=== PATIENT | male | born 1975 | race Caucasian/White ===

== ENCOUNTER 2019-11-19 06:55 | Observation (INO) | payer BC ==
[2019-11-19] MEDS ORDERED: ASPIRIN 81 MG PO STA (07:28)
[2019-11-19] MEDS ORDERED: NITROGLYCERIN OINT 1 INCH/GM PACKET TOPICAL STA (07:28)
--- NOTE | 2019-11-19 07:39 | ED ---
General Adult HPI - General Chief complaint: Chest Pain Stated complaint: Chest pain Time Seen by Provider: 11/19/19 07:00 Source: patient, EMS, RN notes reviewed, old records reviewed Mode of arrival: EMS Limitations: no limitations - History of Present Illness Initial comments: This is a 43-year-old male who presents emergency Department no significant past medical history. Patient states he does have strong family history for heart disease. Patient states his father in his 50s. Patient states last night he started having chest pressure which radiates straight to his back and he woke up this morning and the pressure continued. Patient denies any diaphoretic episodes patient denies any shortness of breath or difficulty breathing. Rowan ent denies any nausea. Patient denies any recent fever chills or cough per patient denies any abdominal pain patient denies any vomiting or diarrhea. She denies any similar symptoms in the past. Patient does describe it as a pressure on his chest. - Related Data Home Medications Medication Instructions Recorded Confirmed No Known Home Medications 08/04/15 08/04/15 Allergies Allergy/AdvReac Type Severity Reaction Status Date / Time No Known Allergies Allergy Verified 08/04/15 13:12 Review of Systems ROS Statement: Those systems with pertinent positive or pertinent negative responses have been documented in the HPI. ROS Other: All systems not noted in ROS Statement are negative. Past Medical History Past Medical History: No Reported History History of Any Multi-Drug Resistant Organisms: None Reported Past Surgical History: Orthopedic Surgery Additional Past Surgical History / Comment(s): FX ANKLE AND THUMB Past Anesthesia/Blood Transfusion Reactions: Motion Sickness Past Psychological History: No Psychological Hx Reported Smoking Status: Never smoker Past Alcohol Use History: None Reported Past Drug Use History: None Reported General Exam - General Exam Comments Initial Comments: GENERAL: Patient is well-developed and well-nourished. Patient is nontoxic and well- hydrated and is in no acute distress. ENT: Neck is soft and supple. No significant lymphadenopathy is noted. Oropharynx is clear. Moist mucous membranes. Neck has full range of motion without eliciting any pain. EYES: The sclera were anicteric and conjunctiva were pink and moist. Extraocular movements were intact and pupils were equal round and reactive to light. Eyelids were unremarkable. PULMONARY: Unlabored respirations. Good breath sounds bilaterally. No audible rales rhonchi or wheezing was noted. CARDIOVASCULAR: There is a regular rate and rhythm without any murmurs gallops or rubs. ABDOMEN: Soft and nontender with normal bowel sounds. SKIN: Skin is clear with no lesions or rashes and otherwise unremarkable. NEUROLOGIC: Patient is alert and oriented x3. Cranial nerves II through XII are grossly intact. Motor and sensory are also intact. Normal speech, volume and content. Symmetrical smile. MUSCULOSKELETAL: Normal extremities with adequate strength and full range of motion. No lower extremity swelling or edema. No calf tenderness. LYMPHATICS: No significant lymphadenopathy is noted PSYCHIATRIC: Normal psychiatric evaluation. Limitations: no limitations Course Vital Signs 11/19/19 11/19/19 07:04 08:08 Temperature 98.6 F Pulse Rate 63 54 L Respiratory 17 16 Rate Blood Pressure 126/89 119/75 O2 Sat by Pulse 99 100 Oximetry Medical Decision Making - Medical Decision Making EKG shows sinus bradycardia 56 bpm WI interval 164 QRS is 82 QT intervals 410 QTC is 395. EKG shows no ST segment elevation or depression. Patient stated that the Nitropaste seem to take away his discomfort. Chest x-ray showed no acute abnormality. - Lab Data Result diagrams: 11/19/19 07:04 11/19/19 07:04 Lab Results 11/19/19 11/19/19 11/19/19 Range/Units 07:04 07:04 07:04 WBC 6.4 (3.8-10.6) k/uL RBC 5.06 (4.30-5.90) m/uL Hgb 14.1 (13.0-17.5) gm/dL Hct 42.9 (39.0-53.0) % MCV 84.8 (80.0-100.0) fL MCH 27.8 (25.0-35.0) pg MCHC 32.8 (31.0-37.0) g/dL RDW 12.5 (11.5-15.5) % Plt Count 265 (150-450) k/uL Neutrophils % 58 % Lymphocytes % 27 % Monocytes % 7 % Eosinophils % 4 % Basophils % 1 % Neutrophils # 3.7 (1.3-7.7) k/uL Lymphocytes # 1.7 (1.0-4.8) k/uL Monocytes # 0.5 (0-1.0) k/uL Eosinophils # 0.2 (0-0.7) k/uL Basophils # 0.1 (0-0.2) k/uL PT 10.6 (9.0-12.0) sec INR 1.0 (<1.2) APTT 24.9 (22.0-30.0) sec Sodium 137 (137-145) mmol/L Potassium 4.2 (3.5-5.1) mmol/L Chloride 103 (98-107) mmol/L Carbon Dioxide 24 (22-30) mmol/L Anion Gap 10 mmol/L BUN 8 L (9-20) mg/dL Creatinine 0.79 (0.66-1.25) mg/dL Est GFR (CKD-EPI)AfAm >90 (>60 ml/min/1.73 sqM) Est GFR (CKD-EPI)NonAf >90 (>60 ml/min/1.73 sqM) Glucose 103 H (74-99) mg/dL Calcium 9.1 (8.4-10.2) mg/dL Magnesium 1.7 (1.6-2.3) mg/dL Total Bilirubin 0.5 (0.2-1.3) mg/dL AST 26 (17-59) U/L ALT 22 (4-49) U/L Alkaline Phosphatase 64 (38-126) U/L Troponin I (0.000-0.034) ng/mL Total Protein 6.7 (6.3-8.2) g/dL Albumin 4.1 (3.5-5.0) g/dL 11/19/19 Range/Units 07:04 WBC (3.8-10.6) k/uL RBC (4.30-5.90) m/uL Hgb (13.0-17.5) gm/dL Hct (39.0-53.0) % MCV (80.0-100.0) fL MCH (25.0-35.0) pg MCHC (31.0-37.0) g/dL RDW (11.5-15.5) % Plt Count (150-450) k/uL Neutrophils % % Lymphocytes % % Monocytes % % Eosinophils % % Basophils % % Neutrophils # (1.3-7.7) k/uL Lymphocytes # (1.0-4.8) k/uL Monocytes # (0-1.0) k/uL Eosinophils # (0-0.7) k/uL Basophils # (0-0.2) k/uL PT (9.0-12.0) sec INR (<1.2) APTT (22.0-30.0) sec Sodium (137-145) mmol/L Potassium (3.5-5.1) mmol/L Chloride (98-107) mmol/L Carbon Dioxide (22-30) mmol/L Anion Gap mmol/L BUN (9-20) mg/dL Creatinine (0.66-1.25) mg/dL Est GFR (CKD-EPI)AfAm (>60 ml/min/1.73 sqM) Est GFR (CKD-EPI)NonAf (>60 ml/min/1.73 sqM) Glucose (74-99) mg/dL Calcium (8.4-10.2) mg/dL Magnesium (1.6-2.3) mg/dL Total Bilirubin (0.2-1.3) mg/dL AST (17-59) U/L ALT (4-49) U/L Alkaline Phosphatase (38-126) U/L Troponin I <0.012 (0.000-0.034) ng/mL Total Protein (6.3-8.2) g/dL Albumin (3.5-5.0) g/dL Disposition Clinical Impression: Chest pain Disposition: ADMITTED IP TO THIS [facility] Referrals: None,Stated [Primary Care Provider] - 1-2 days Time of Disposition: 09:04
[2019-11-19 08:02] LABS: Basophils # (A) 0.1 k/uL (0-0.2); Basophils % (A) 1 %; Eosinophils # (A) 0.2 k/uL (0-0.7); Eosinophils % (A) 4 %; HCT 42.9 % (39.0-53.0); HGB 14.1 gm/dL (13.0-17.5); Lymphocytes # (A) 1.7 k/uL (1.0-4.8); Lymphocytes % (A) 27 %; MCH 27.8 pg (25.0-35.0); MCHC 32.8 g/dL (31.0-37.0); MCV 84.8 fL (80.0-100.0); Mean Platelet Volume 7.6; Monocytes # (A) 0.5 k/uL (0-1.0); Monocytes % (A) 7 %; Neutrophils # (A) 3.7 k/uL (1.3-7.7); Neutrophils % (A) 58 %; Platelet Count 265 k/uL (150-450); RBC 5.06 m/uL (4.30-5.90); RDW 12.5 % (11.5-15.5); WBC 6.4 k/uL (3.8-10.6)
[2019-11-19 08:11] LABS: ALT 22 U/L (4-49); AST 26 U/L (17-59); African American GFR (CKD) >90 (>60 ml/min/1.73 sqM); Albumin 4.1 g/dL (3.5-5.0); Alkaline Phosphatase 64 U/L (38-126); Anion Gap 10 mmol/L; Blood Urea Nitrogen 8 mg/dL (9-20); Calcium 9.1 mg/dL (8.4-10.2); Carbon Dioxide 24 mmol/L (22-30); Chloride 103 mmol/L (98-107); Glucose 103 mg/dL (74-99); Magnesium 1.7 mg/dL (1.6-2.3); Non-African American GFR(CKD) >90 (>60 ml/min/1.73 sqM); Partial Thromboplastin Time 24.9 sec (22.0-30.0); Potassium 4.2 mmol/L (3.5-5.1); Prothrombin Time 10.6 sec (9.0-12.0); Sodium 137 mmol/L (137-145); Total Bilirubin 0.5 mg/dL (0.2-1.3); Total Protein 6.7 g/dL (6.3-8.2)
--- NOTE | 2019-11-19 08:17 | XR ---
EXAMINATION TYPE: XR chest 2V DATE OF EXAM: 11/19/2019 COMPARISON: NONE HISTORY: Chest pain for 2 days. TECHNIQUE: Frontal and lateral views of the chest are obtained. FINDINGS: There is no focal air space opacity, pleural effusion, or pneumothorax seen. The cardiac silhouette size is mildly enlarged. Overlying EKG leads are seen. The osseous structures are intact. IMPRESSION: Mild cardiomegaly without acute pulmonary process.
[2019-11-19] MEDS ORDERED: NITROGLYCERIN SL TABS 0.4 MG TAB SUBLINGUAL PRN (09:04)
[2019-11-19] MEDS: NITROGLYCERIN OINT 1 INCH/GM PACKET TOPICAL SCH ×2 (12:13→17:36)
--- NOTE | 2019-11-19 16:08 | CONS ---
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 He describes the chest pain as precordial, but radiates to his back. There is no history of exertional chest pain, shortness of breath, leg edema, PND or orthopnea. At the time of my evaluation, he is pain-free and hemodynamically stable. An EKG shows sinus bradycardia without significant ST-T wave changes. A chest x-ray showed mild cardiomegaly without any acute process. First set of troponin is negative. Creatinine is normal as is the hemoglobin. The patient's chest discomfort sounds somewhat atypical. I will obtain serial troponins and if NH is ruled out, consider a stress test on him tomorrow. PAST MEDICAL HISTORY: Negative for hypertension, diabetes, dyslipidemia. MEDICATIONS: None. ALLERGIES: None. FAMILY HISTORY: Negative for premature coronary artery disease. SOCIAL HISTORY: Negative for current smoking, EtOH abuse, or drug abuse. REVIEW OF SYSTEMS: HEENT: Unremarkable. CARDIAC: As described above. RESPIRATORY: Negative. GI: Negative. GENITOURINARY: Negative. ALLERGY/IMMUNOLOGY: Negative. MUSCULOSKELETAL: Negative. ENDOCRINE: Negative. DERM: Negative. CONSTITUTIONAL: Negative. ONCOLOGICAL: Negative. BULK TANK DRIVER: Negative. Rest of the system review is not relevant. On exam, patient is comfortable at rest. Vital signs are stable. There is no jugular venous distention. Carotid upstroke is normal. There is no bruit. Chest exam reveals good air entry bilaterally. Heart exam reveals first and second heart sounds. No gallop. No murmur. No rub. Abdomen is soft, nontender. Exam of the extremities did not reveal any edema. Peripheral pulses are felt. BULK TANK DRIVER exam did not reveal focal neurological deficits. EKG as described above. Troponin is negative. LABS: Have been reviewed. ASSESSMENT: Precordial chest pain. PLAN: Patient's chest pain sounds somewhat atypical. I will obtain serial troponins. If myocardial infarction is ruled out, I will schedule him for a stress test. MMODL / IJN: [id number] /
--- NOTE | 2019-11-19 20:17 | HP ---
HISTORY AND PHYSICAL CHIEF COMPLAINT: Chest pain. HISTORY OF PRESENT ILLNESS: This is the first admission for this 43-year-old healthy white male. He started having chest pain in the afternoon prior to admission. He describes it as a fairly steady pressure-like sensation in the chest. It was not relieved by doing anything, lying down, eating, etc. He ate a meal and it persisted. He felt a little discomfort in his back. He got up in the morning and he still had the squeezing feeling in the chest with some back pain. At no time did he have shortness of breath, diaphoresis, nausea, etc. He has had no fever, chills, cough, hemoptysis, dysphagia, indigestion, etc. REVIEW OF SYSTEMS: He has had no headaches, neurologic problems, dizziness, problems with vision or hearing, cough, hemoptysis, sputum production, pleurisy, hypertension, murmurs, rheumatic fever, orthopnea, PND, abdominal pain, nausea, vomiting, hematemesis, melena, hematochezia, jaundice, hepatitis, cirrhosis, renal failure, hematuria, frequency, urgency, dysuria, stones or diabetes. Past medical history, family history, and personal and social histories are unremarkable and noncontributory otherwise. He is on no medication. He is not allergic to any. He has had no surgery. He does not smoke. The only significant part of his history is that his father had a myocardial infarction at 59 and . PHYSICAL EXAMINATION: Blood pressure is 123/74 with a pulse of 69, respirations of 12, and he is afebrile. In general he appeared to be well developed, well nourished, in no acute distress. Skin color is normal. Skin is warm and dry. Lymph nodes are not enlarged. Head, ears, eyes, nose, mouth and throat were normal. Neck veins are not distended. Thyroid is not enlarged. Chest is clear. Cardiac exam is normal. No murmurs, rubs or extra sounds. Abdomen is soft and nontender. Extremities are normal. Neurologically he is intact. He is admitted to the hospital with diagnoses: 1. Atypical chest pain. 2. Family history of premature coronary artery disease. PLAN: 1. Bed rest. 2. IV fluids. 3. Serial EKGs and enzymes. 4. Cardiology consult. MMODL / IJN: [id number] /
[2019-11-20] MEDS: NITROGLYCERIN OINT 1 INCH/GM PACKET TOPICAL SCH ×3 (00:09→12:20)
[2019-11-20 01:35] LABS: Cholesterol 145 mg/dL (<200); HDL Cholesterol 36 mg/dL (40-60); LDL Cholesterol,Calculated 92 mg/dL (0-99); Triglycerides 84 mg/dL (<150)
[2019-11-20 08:29] VITALS: BP 116/74; PULSE 52; RESP 14; TEMP 97.6
[2019-11-20] MEDS ORDERED: ASPIRIN 325 MG TAB PO SCH (09:00)
--- NOTE | 2019-11-20 10:40 | ECHOF ---
Referral Reason:chest pain MEASUREMENTS -------- HEIGHT: 185.4 cm WEIGHT: 88.9 kg BP: 141/57 RVIDd: 3.4 cm (< 3.3) IVSd: 1.2 cm (0.6 - 1.1) LVIDd: 4.3 cm (3.9 - 5.3) LVPWd: 1.0 cm (0.6 - 1.1) IVSs: 1.4 cm LVIDs: 3.0 cm LVPWs: 1.5 cm LA Diam: 3.0 cm (2.7 - 3.8) LAESV Index (A-L): 13.27 ml/m Ao Diam: 3.2 cm (2.0 - 3.7) AV Cusp: 2.4 cm (1.5 - 2.6) MV EXCURSION: 21.258 mm (> 18.000) MV EF SLOPE: 71 mm/s (70 - 150) EPSS: 0.5 cm MV E Ryan: 0.68 m/s MV DecT: 266 ms MV A Ryan: 0.62 m/s MV E/A Ratio: 1.11 FINDINGS -------- Sinus rhythm. This was a technically good study. The left ventricular size is normal. There is borderline concentric left ventricular hypertrophy. Overall left ventricular systolic function is normal with, an EF between 60 - 65 %. The right ventricle is mildly enlarged. Normal LA size by volume 22+/-6 ml/m2. The right atrium is normal in size. Interatrial and interventricular septum intact. The aortic valve is trileaflet and appears structurally normal. The mitral valve is normal. The tricuspid valve appears structurally normal. Trace/mild (physiologic) pulmonic regurgitation. The aortic root size is normal. Normal inferior vena cava with normal inspiratory collapse consistent with estimated right atrial pre ssure of 5 mmHg. There is no pericardial effusion. CONCLUSIONS -------- 1. Sinus rhythm. 2. This was a technically good study. 3. The left ventricular size is normal. 4. There is borderline concentric left ventricular hypertrophy. 5. Overall left ventricular systolic function is normal with, an EF between 60 - 65 %. 6. The right ventricle is mildly enlarged. 7. Normal LA size by volume 22+/-6 ml/m2. 8. The right atrium is normal in size. 9. Interatrial and interventricular septum intact. 10. The aortic valve is trileaflet and appears structurally normal. 11. The mitral valve is normal. 12. The tricuspid valve appears structurally normal. 13. Trace/mild (physiologic) pulmonic regurgitation. 14. The aortic root size is normal. 15. Normal inferior vena cava with normal inspiratory collapse consistent with estimated right atrial pressure of 5 mmHg. 16. There is no pericardial effusion. PAPIER MACHE MOLDER: Karen Renee RDCS
--- NOTE | 2019-11-20 11:51 | P.PN ---
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 He was seen in consultation yesterday by Dr. Epps. Underwent a stress test today, which was reported to be normal by Dr. Desmond Moreno. Cardiac gram with Doppler study revealed a normal left ventricular systolic function. Blood pressure 116/70 with a heart rate in the 50s to 60s, 97% on room air. Objective - Vital Signs Vital signs: Vital Signs Temp 97.6 F 11/20/19 08:00 Pulse 52 L 11/20/19 08:00 Resp 14 11/20/19 08:00 BP 116/74 11/20/19 08:00 Pulse Ox 97 11/20/19 08:00 Intake & Output 11/19/19 11/20/19 11/20/19 18:59 06:59 18:59 Intake Total 125 10 Balance 125 10 Weight 86.183 kg 89.1 kg 89.1 kg Intake: IV 10 0.9 10 Oral 125 Other: Voiding Method Toilet Toilet # Voids 1 1 - Exam PHYSICAL EXAMINATION: GENERAL: 43-year-old gentleman in no acute distress at the time of my examination HEENT: Head is atraumatic, normocephalic. Pupils equal, round. Sclera anicteric. Conjunctiva are clear. Mucous membranes of the mouth are moist. Neck is supple. There is no elevated jugular venous pressure. No carotid bruit is heard. HEART EXAMINATION: Heart S1, S2 normal. No murmur or gallop heard. CHEST EXAMINATION: Lungs are clear to auscultation and precussion. No chest wall tenderness is noted on palpation or with deep breathing. ABDOMEN: Soft, nontender. Bowel sounds are heard. No organomegaly noted. EXTREMITIES: 2+ peripheral pulses with no evidence of peripheral edema and no calf tenderness noted. NEUROLOGIC patient is awake, alert and oriented 3 . - Labs CBC & Chem 7: 11/19/19 07:04 11/19/19 07:04 Labs: Abnormal Lab Results - Last 24 Hours (Table) 11/19/19 Range/Units 07:04 HDL Cholesterol 36 L (40-60) mg/dL Assessment and Plan Plan: Assessment and plan #1 atypical chest discomfort Plan Stress test from today was negative, echocardiogram with Doppler study revealed a normal left ventricular systolic function. From cardiology's perspective patient may be able to be discharged home today. DNP note has been reviewed, I agree with a documented findings and plan of care. Patient was seen and examined.
--- NOTE | 2019-11-20 12:28 | EST ---
EXERCISE STRESS AGE: 43 SEX: M HT: 6'1'' WT 190 lbs. PROTOCOL: Alvaro STAGE: 4 DURATION OF EXERCISE: 10:15 HEART RATE REST: 98 BLOOD PRESSURE REST: 127/87 MAXIMUM HEART RATE ACHIEVED: 161 MAXIMUM BLOOD PRESSURE: 186/79 85% MPHR: 150 100% MPHR: 177 METS: 11.9 INDICATIONS: Chest pain CLINICAL INFORMATION: Baseline EKG revealed a normal sinus rhythm with nonspecific ST changes in lead 3 and flattening of T-waves in aVF. The patient walked for 10 minutes 15 seconds. He did not have any symptoms of angina. There was no arrhythmia. There was nonspecific upsloping ST-segment changes noted. Resting heart rate was 78 beats per minute and peak heart rate was 161 beats per minute. Resting blood pressure was 127/87 and peak blood pressure was 203/76. This is a negative stress test with nonspecific upsloping ST-segment changes. There is no evidence to suggest ischemia. Excellent exercise capacity was demonstrated. MMROCL / MARTHAN: [id number] /
--- NOTE | 2019-11-20 19:00 | DS ---
DISCHARGE SUMMARY CHIEF COMPLAINT: Chest pain. HISTORY OF PRESENT ILLNESS AND PHYSICAL EXAMINATION: Details of this man's history and physical can be found in the initial workup. LABORATORY STUDIES: While he was in the hospital he had laboratory studies, details of which can be found in the laboratory section of his chart. COURSE IN THE HOSPITAL: After admission he was placed on bedrest, started on intravenous fluids and had serial EKGs and enzymes; they were normal. He was seen by Cardiology and he was taken for a stress test, which came back normal. It was felt that he could go home on his usual activity, diet and no medications, and he will follow up in the office. FINAL DIAGNOSIS: Atypical chest pain. OPERATIONS: None. CONSULTATION: Cardiology. He is improved. MMODL / IJN: [id number] /
== END 2019-11-20 13:17 | disposition home or self-care (01) ==
LOC: EC 06:55 → 3SCARD 09:10
PROVIDERS: ADMIT Family Medicine; ATTEND Family Medicine
DX: R07.89 Other chest pain (principal); I51.7 Cardiomegaly; R00.1 Bradycardia, unspecified; M54.9 Dorsalgia, unspecified; Z87.81 Personal history of (healed) traumatic fracture; Z82.49 Family history of ischemic heart disease and other diseases of the circulatory system; Z03.818 Encounter for observation for suspected exposure to other biological agents ruled out
CPT/HCPCS: 93005 ×2; 99285; 36415; 93017; 93306; 80061; 80053; 83735; 84484; 85025; 85610; 85730; 87635; 71046; G0378 ×2